=== PATIENT | male | born 2000 | race Caucasian/White ===

== ENCOUNTER 2018-05-07 14:35 | Emergency (ER) | payer OTHER ==
--- NOTE | 2018-05-07 14:46 | PDOC ---
History of Present Illness - General Chief Complaint: Injury Stated Complaint: HIT HEAD Time Seen by Provider: 05/07/18 14:37 - History of Present Illness Initial Comments: 05/07/18 15:08 17yo male with closed head injury at work. Pt states he was carrying a tray at the [employer] club when another worker carrying the data technician block with food on it bumped into his head. Pt denies LOC. Denies falls. Pt with small abrasion to the forehead, no hematoma. Pt states he sat down, felt dizzy for a few minutes which has since resolved. Pt states he has been ambulatory with a steady gait. Pt denies pmhx. Denies neck pain. No f/c. No cp/sob. States L sided abd pain that started at the same time as the head injury. Pt states he hasn't eaten since yesterday morning for breakfast. Pt denies n/v/d. No other complaints. PMHx: denies PSHx: denies All: pcn meds: denies social: marijuana use occasionally Past History - Past Medical History Allergies/Adverse Reactions: Allergies Allergy/AdvReac Type Severity Reaction Status Date / Time Penicillins Allergy Verified 05/07/18 14:42 Home Medications: Ambulatory Orders NK [No Known Home Medication] 05/07/18 Review of Systems - Review of Systems Able to Perform ROS?: Yes Is the patient limited [place] proficient: No Constitutional: No: Chills, Fever HEENTM: No: Eye Pain, Blurred Vision, Recent change in vision, Double Vision, Nose Congestion, Throat Pain Respiratory: No: Cough, Shortness of Breath Cardiac (ROS): No: Chest Pain ABD/GI: Yes: Abdominal cramping. No: Diarrhea, Nausea, Vomiting : No: Burning, Dysuria Musculoskeletal: No: Back Pain Integumentary: No: Bruising Neurological: Yes: Headache. No: Numbness, Paresthesia, Tingling, Unsteady Gait , Ataxia, Dizziness All Other Systems: Reviewed and Negative *Physical Exam - Vital Signs 05/07/18 15:11 Selected Entries 05/07/18 14:36 Temperature 98.1 F Pulse Rate 71 Respiratory 20 Rate Blood Pressure 114/62 Blood Pressure 79 Mean O2 Sat by Pulse 100 Oximetry (%) Weight 72.575 kg - Physical Exam General Appearance: Yes: Nourished, Appropriately Dressed. No: Apparent Distress HEENT: positive: EOMI, DREAD, Normal ENT Inspection, Normal Voice Neck: positive: Supple. negative: Tender midline Respiratory/Chest: positive: Lungs Clear, Normal Breath Sounds. negative: Respiratory Distress Cardiovascular: positive: Regular Rhythm, Regular Rate, S1, S2. negative: Edema Gastrointestinal/Abdominal: positive: Normal Bowel Sounds, Flat, Soft. negative : Guarding, Rebound, Tenderness Musculoskeletal: positive: Normal Inspection. negative: Vertebral Tenderness Extremity: positive: Normal Capillary Refill, Normal Inspection, Other ( ambulatory with a steady gait, able to walk straight line, ambulate on toes and heels). negative: Calf Tenderness Integumentary: positive: Normal Color, Dry, Warm, Other (small abrasion to forehead, no bleeding, no hematoma) Neurologic: positive: bitumastic applier II-XII NML intact, Fully Oriented, Alert, Normal Mood/ Affect, Normal Response, Motor Strength 5/5, Responsive. negative: Sensory Deficit, Confused, Disoriented Medical Decision Making - Medical Decision Making 05/07/18 15:12 a/p: 17yo male with closed head injury at work- bumped head -neuro intact -will po challenge in the ED -will monitor -injury occured at noon today -has been working since -low risk for intracranial injury- no anticoags, no antiplts. -low risk mechanisms -will monitor and repeat neuro exam in the ED 05/07/18 15:18 local wound care to the forehead performed, bacitracin applied 05/07/18 15:53 pt has tolerated po requesting to leave neuro intact no vomiting no headache stable for dc to home with closed head injury precautions discussed reasons to return to the ED *DC/Admit/Observation/Transfer Diagnosis at time of Disposition: Forehead abrasion, Closed head injury - Discharge Dispostion Disposition: HOME Condition at time of disposition: Stable Decision to Admit order: No - Referrals Referrals: Donnell Laura MD [Staff Physician] - - Patient Instructions Printed Discharge Instructions: DI for Closed Head Injury Additional Instructions: Please drink plenty of fluids. Please take tylenol as needed for the headache, but do not exceed 4g per day. Please follow up with your PMD in 1-2 days. Please return to the ED with any further concerns or complaints. - Post Discharge Activity Forms/Work/School Notes: Back to Work
[2018-05-07 14:52] VITALS: BP 114/62; PULSE 71; TEMP 98.1; BMI 21.7
[2018-05-07] MEDS ORDERED: ACETAMINOPHEN 500 MG TABLET (FP) PO ONE (15:07)
[2018-05-07] MEDS ORDERED: ACETAMINOPHEN 500 MG TABLET (FP) ONE (15:16)
== END 2018-05-07 16:06 | disposition home or self-care (01) ==
LOC: FER 14:35
CPT/HCPCS: 99281-25

== ENCOUNTER 2023-12-23 10:33 | Emergency (ER) | payer OTHER ==
[2023-12-23 10:42] VITALS: BP 130/79; PULSE 94; RESP 20; TEMP 97.5; BMI 22.4
[2023-12-23] MEDS ORDERED: IBUPROFEN 600 MG TABLET (FP) PO ONE (11:05)
[2023-12-23] MEDS ORDERED: PSEUDOEPHEDRINE HCL 30 MG TABLET ONE (11:05)
[2023-12-23] MEDS: PSEUDOEPHEDRINE HCL 60 MG TABLET PO ONE (11:07)
[2023-12-23] MEDS: IBUPROFEN 600 MG TABLET (FP) PO ONE (11:07)
== END 2023-12-23 11:47 | disposition home or self-care (01) ==
LOC: FER 10:33
DX: J02.9 Acute pharyngitis, unspecified (principal); R05.9 Cough, unspecified; R11.0 Nausea; R19.7 Diarrhea, unspecified; B34.9 Viral infection, unspecified; Z20.822 Contact with and (suspected) exposure to COVID-19
CPT/HCPCS: 0241U-QW; 71046-TC-FY; 87651; 99284-25